=== PATIENT | male | born 2000 | race Caucasian/White ===

== ENCOUNTER 2024-11-15 10:57 | Emergency (ER) | payer BC ==
[2024-11-15] MEDS: Lidocaine 1% 10 ML MDV INJECT ONE (12:16)
== END 2024-11-15 13:20 | disposition home or self-care (01) ==
LOC: JD.ED 10:57
DX: S61.211A Laceration without foreign body of left index finger without damage to nail, initial encounter (principal); W26.0XXA Contact with knife, initial encounter
CPT/HCPCS: 12001; 93005; 99284; J2003